=== PATIENT | male | born 1975 | race Caucasian/White ===

== ENCOUNTER 2022-07-03 10:32 | Day surgery (SDC) | payer OTHER ==
[~2022-07-03] VITALS: Ht 165.1 cm; Wt 79.8 kg
[2022-07-03] MEDS ORDERED: LIDOCAINE 2% 100 MG/5 ML UJET TP ONE (11:13)
[2022-07-03] MEDS ORDERED: fentaNYL citrate 0.05 MG/ML VIAL ONE (11:13)
[2022-07-03] MEDS ORDERED: fentaNYL citrate 0.05 MG/ML VIAL IVP ONE (12:05)
== END 2022-07-03 12:05 | disposition home or self-care (01) ==
LOC: MOR 10:32 → MMU 10:32 → MOR 12:05
PROVIDERS: ATTEND Internal Medicine Gastroenterology
DX: Z12.11 Encounter for screening for malignant neoplasm of colon (principal); E78.00 Pure hypercholesterolemia, unspecified; K76.0 Fatty (change of) liver, not elsewhere classified; Z79.899 Other long term (current) drug therapy
CPT/HCPCS: 45378; J3010